=== PATIENT | male | born 1955 | race Caucasian/White ===

== ENCOUNTER 2017-03-11 16:43 | Emergency (ER) | payer OTHER ==
[~2017-03-11] VITALS: Ht 190.5 cm; Wt 99.5 kg
[~2017-03-11 16:43] MED LIST: AMIODARONE HCL400 MG PO; ATORVASTATIN CA40 MG PO; CARDIZEM CD,CA180 MG PO; CEFUROXIME500 MG PO; COZAAR50 MG PO; CYMBALTA60 MG PO; DIFLUCAN200 MG PO; DIGITEK125 MC2 PO; FLOVENT 11120 INHALA IH; KLOR-CON M2020 MEQ PO; LASIX40 MG PO; LO-DOSE ASPIRIN81 M2 PO; MELATONIN5 M1 PO; METOPROLOL SUCC50 MG PO; NEURONTIN600 MG PO; NITROSTAT0.4 MG SL; PROAIR HFA8.5 GM IH; PROTONIX40 MG PO; TRAMADOL HCL50 MG PO; VITAMIN B-1100 MG PO; WARFARIN SODIUM1 MG PO
[2017-03-11 17:33] LABS: HEMATOCRIT 35.8 % (38.0-50.0); MCH 22.7 PG (29.0-34.0); MCHC 30.2 G/DL (30.0-36.0); MCV 75.2 FL (86-99); MEAN PLAT.VOLUME 9.7 uM^3 (9.0-12.4); PLATELET COUNT 587 K/uL (156-360); RBC DIS.WIDTH-CV 25.1 % (11.8-14.6); RBC DIS.WIDTH-SD 66.1 % (39-53); RED BLOOD COUNT 4.76 M/uL (4.00-5.50); WHITE BLOOD COUNT 8.7 K/uL (4.1-10.2)
[2017-03-11 17:43] LABS: CHLORIDE 110 mEq/L (99-109); SODIUM 143 mEq/L (136-147)
[2017-03-11 17:45] LABS: GLUCOSE 115 mg/dL (70-99)
[2017-03-11 17:46] LABS: ANION GAP 11 MEQ/L (2-14)
[2017-03-11 17:48] LABS: SERUM ETHYL ALCOHOL 272 mg/dL
[2017-03-11 17:49] LABS: GFR ESTIMATE (CALCULATED) > 59 mL/min/
[2017-03-11 17:50] LABS: UREA NITROGEN (BUN) 10 mg/dL (9-23)
[2017-03-11] MEDS ORDERED: PROMETHAZINE HC25 M1 PO (18:52)
[2017-03-11] MEDS ORDERED: FUROSEMIDE20 MG PO (18:52)
[2017-03-12 02:00] VITALS: BP 119/94
== END 2017-03-12 02:01 | disposition short-term general hospital (02) ==
LOC: EME 16:43
PROVIDERS: Emergency Medicine
DX: S02.109A Fracture of base of skull, unspecified side, initial encounter for closed fracture (principal); S02.612A Fracture of condylar process of left mandible, initial encounter for closed fracture; S01.81XA Laceration without foreign body of other part of head, initial encounter; S19.9XXA Unspecified injury of neck, initial encounter; M54.9 Dorsalgia, unspecified; W01.0XXA Fall on same level from slipping, tripping and stumbling without subsequent striking against object, initial encounter; Y92.009 Unspecified place in unspecified non-institutional (private) residence as the place of occurrence of the external cause; F10.129 Alcohol abuse with intoxication, unspecified; Y90.8 Blood alcohol level of 240 mg/100 ml or more; Z23 Encounter for immunization; I10 Essential (primary) hypertension; Z98.84 Bariatric surgery status; Z86.711 Personal history of pulmonary embolism; Z86.718 Personal history of other venous thrombosis and embolism; Z79.01 Long term (current) use of anticoagulants; F17.200 Nicotine dependence, unspecified, uncomplicated
CPT/HCPCS: 70450; 72125; 80048; 85027; 93005; 99281; 99285; G0480; J0295; J2270; J2405; J7050